=== PATIENT | male | born 1960 | race Caucasian/White ===

== ENCOUNTER 2024-04-12 08:38 | Emergency (ER) | payer MEDICARE, OTHER ==
[2024-04-12] MEDS ORDERED: Boostrix 0.5 ML (Tdap) VIAL (>/=7 yrs of age) ONE (08:48)
[2024-04-12] MEDS ORDERED: Lidocaine 1% PF 5 ML VIAL ONE (09:09)
[2024-04-12] MEDS ORDERED: Bacitracin 1 PK ONE (09:28)
== END 2024-04-12 09:37 | disposition home or self-care (01) ==
LOC: BURERS 08:38
DX: S60.551A Superficial foreign body of right hand, initial encounter (principal); I10 Essential (primary) hypertension; X58.XXXA Exposure to other specified factors, initial encounter
CPT/HCPCS: 10120; 90471; 90715